=== PATIENT | male | born 1970 | race Caucasian/White ===

== ENCOUNTER 2023-07-29 21:20 | Emergency (ER) | payer BC, SELFPAY ==
[2023-07-29 21:23] VITALS: BP 159/88
[2023-07-29 21:43] VITALS: BP 139/101
[2023-07-29 21:49] VITALS: BMI 32.9
[2023-07-29 22:02] LABS: % Basophils 0.3 % (0-2); % Eosinophils 0.4 % (0-6); % Immature Granulocytes 0.7 % (0-0.5); % Lymphocytes 6.8 % (20.5-51.1); % Monocytes 6.1 % (1.7-9.3); % Neutrophils 85.7 % (42.2-75.2); Absolute Basophils 0.1 10^3/uL (0-0.2); Absolute Eosinophils 0.1 10^3/uL (0-0.7); Absolute Immature Granulocytes 0.1 10^3/uL (0-0.05); Absolute Lymphocytes 1.2 10^3/uL (1.2-3.4); Absolute Monocytes 1.1 10^3/uL (0.1-0.6); Absolute Neutrophils 15.1 10^3/uL (1.4-6.5); Hemoglobin 15.4 g/dL (13.0-18.0); Mean Corp Hgb Conc. 35.8 g/dL (33.0-37.0); Mean Corpuscular Hgb 30.3 pg (27.0-31.0); Mean Corpuscular Volume 84.6 fL (80.0-94.0); Nucleated Red Blood Cells % 0 % (-); Platelet Count 288 10^3/uL (130-400); Red Blood Cell Count 5.08 10^6/uL (4.70-6.10); Red Cell Dist. Width 13.4 % (11.5-14.5); White Blood Cell Count 17.7 10^3/uL (4.8-10.8)
[2023-07-29 22:04] LABS: Urine Albumin 1+ (Neg - Trace); Urine Bilirubin Negative (Negative); Urine Character Clear (Clear); Urine Color Yellow; Urine Glucose Negative (Negative); Urine Ketone 1+ (Negative); Urine Leukocyte Trace (Negative); Urine Nitrite Negative (Negative); Urine Occult Blood 4+ (Negative); Urine Specific Gravity 1.025 (<1.030); Urine Urobilinogen Negative (Neg - 1+)
[2023-07-29 22:14] LABS: ALT (SGPT) 37 U/L (0-50); AST (SGOT) 38 U/L (17-59); Albumin 4.7 g/dl (3.5-5.0); Alkaline Phosphatase 92 U/L (38-126); Blood Urea Nitrogen 19 mg/dl (9-20); Carbon Dioxide 23 mmol/L (22-30); Chloride 108 mmol/L (98-107); Estimated Creatinine Clearance 77 ml/min; Glucose 127 mg/dl (70-99); Potassium 3.9 mmol/L (3.5-5.1); Sodium 138 mmol/L (135-145); Total Bilirubin 0.9 mg/dl (0.2-1.3); Total Protein 7.9 g/dl (6.3-8.2); eGFR > 60.00
[2023-07-29 22:15] LABS: Urine Mucus Few; Urine Squamous Cell 0-2 /LPF (Few)
[2023-07-29 22:17] LABS: Urine Uric Acid Crystals Present
[2023-07-29 22:19] LABS: Urine Red Blood Cell 40-50 /HPF (0-2); Urine White Cell 0-2 /HPF (0-5)
[2023-07-29 22:20] LABS: Urine Bacteria Moderate (Negative)
--- NOTE | 2023-07-29 23:02 | ED.GENMED ---
History of Present Illness
General
Chief Complaint: Flank Pain
Source: patient
Exam Limitations: none
Time Seen by Provider: 07/29/23 22:15
Travel History
Have you had any contact with someone who has COVID-19?: No
Do you have any symptoms of coronavirus? Fever > 100 degrees, chills, cough, shortness of breath, sore throat, loss of taste or smell, muscle aches, or headache?: No
History of Present Illness
History of Present Illness:
This is a 53 year old male that comes in with c/o left flank pain. States that he started on Friday with a little lower abd pain on the left. States that his urine also was a little bloody and his output was decreased. States that yesterday he went
to work and today he worked till about 4pm. States that he went to [facility] and they all had a 5 hour wait so he came here. States that he was nauseated and had dry heaves. Denies any fever, chills, chest pain, SOB, vomiting,
diarrhea, headache, dizziness, urinary burning.
Past History
Past History
ED Past Medical History: HTN and Other (Renal calculus); Negative Asthma, Hypercholesterolemia or NIDDM
ED Past Surgical History: None
Social History
Tobacco: Smoker
Alcohol: None
Personal:
Living: with family
Employment: Employed
Review of Systems
Review of Systems
All Other Systems: ROS reviewed and negative except as documented in HPI and ROS
Constitutional: Reports no symptoms; Denies fever or chills
EENT: Reports no symptoms
Respiratory: Reports no symptoms; Denies cough or trouble breathing
Cardiac: Reports no symptoms; Denies chest pain
ABD/GI: Reports abdominal pain (Left lower abd) and nausea (Slight Dry heaves); Denies vomiting or diarrhea
: Reports other (Decreased output); Denies dysuria, frequency or urgency
Musculoskeletal: Reports no symptoms
Skin: Reports no symptoms
Neurological: Reports no symptoms; Denies dizzy or headache
Psychiatric: Reports no symptoms
Phy Exam
General Physical Exam
General Presentation: mild distress
General age: appears stated age
General Skin: warm and dry
General Habitus: normal
General Mental: alert
General Hydration: appears well hydrated
ENT Exam
ENT Exam: TM's normal, pharynx normal and neck supple
Eye Exam
Eye Exam: EOMI
Cardiovascular Exam
Cardiovascular Exam: regular rate/rhythm, no edema and normal peripheral pulses
Pulmonary Exam
Pulmonary Exam: lungs clear, no respiratory distress, no rales, chest non tender, no crackles, no rhonchi, no wheezing and no cough
Gastrointestinal Exam
Gastrointestinal Exam: normal bowel sounds, non tender, soft, no organomegaly, no pulsatile mass, non distended and cva tenderness (Left sided very slight)
Musculoskeletal Exam
Musculoskeletal Exam: full ROM and no edema
Skin Exam
Skin Exam: normal color, warm/dry, no rash and no petechia
Psychiatric Exam
Psychiatric Exam: normal mood/affect
Course
Orders/Labs/Results
Orders:
Orders
07/29/23 21:50
EKG [Electrocardiogram (*1)] Urgent
Reason for Study: Abdominal Pain
07/29/23 21:51
EKG- Treatment ONCE
07/29/23 21:54
Complete Blood Count/With Diff Urgent
Comprehensive Metabolic Panel Urgent
Urinalysis Reflex To Culture Urgent
Date Specimen was Collected: 07/29/23
Time Specimen was Collected: 21:51
Urine Microscopic Reflex Cult Urgent
Urine Culture Urgent
CHRISTINE Source: U
Specimen Description:
Date Specimen was Collected: 07/29/23
Time Specimen was Collected: 21:51
07/29/23 23:01
0.9% Sodium Chloride 1000 ml [Nss] 1,000 ml IV BOLUS
HYDROmorphone [Dilaudid] 1 mg IV NOW STA
Ketorolac [Toradol] 30 mg IV NOW STA
07/29/23 23:02
CT Abd/pel Without Iv Or Oral Urgent
Comment:
Reason For Exam: Left flank pain
07/29/23 23:04
Ondansetron Injectable [Zofran] 4 mg IV NOW STA
07/29/23 23:05
Ondansetron Injectable [Zofran] 4 mg .ROUTE .STK-MED ONE
Abnormal Lab Results
07/29/23
21:54
WBC 17.7 H 10^3/uL
(4.8-10.8)
Abs Immat Gran (auto) 0.1 H 10^3/uL
(0-0.05)
Absolute Neuts (auto) 15.1 H 10^3/uL
(1.4-6.5)
Absolute Monos (auto) 1.1 H 10^3/uL
(0.1-0.6)
Immature Gran % 0.7 H %
(0-0.5)
Neutrophils % 85.7 H %
(42.2-75.2)
Lymphocytes % 6.8 L %
(20.5-51.1)
Chloride 108 H mmol/L
(98-107)
Glucose 127 H mg/dl
(70-99)
Urine Ketones 1+ A
(Negative)
Ur Occult Blood Reflex 4+ A
(Negative)
Leukocyte Esterase Rfl Trace A
(Negative)
Urine RBC 40-50 A /HPF
(0-2)
Urine Bacteria (Reflex) Moderate A
(Negative)
Urine Albumin (Reflex) 1+ A
(Neg - Trace)
07/29/23 21:54
07/29/23 21:54
Leukocytosis, glucose nonfasting. Urine negative for infection.
Vital Signs
Initial and Last Documented VS:
Initial Vital Signs
Temp Pulse Resp BP Pulse Ox
98.5 F 91 19 159/88 95
07/29/23 21:23 07/29/23 21:23 07/29/23 21:23 07/29/23 21:23 07/29/23 21:23
Last Documented Vital Signs
Temp Pulse Resp BP Pulse Ox
98.5 F 91 19 123/81 95
07/29/23 21:23 07/29/23 21:23 07/29/23 21:23 07/29/23 23:14 07/29/23 23:14
MDM/Problems Addressed
Differential Diagnosis Includes:
Obstructing renal calculus, Diverticulitis,
MDM/Problems Addressed:
This is a 53 year old male that comes in with c/o left flank pain. States that he started with some lower abd pain on Friday and his urine was a little bloody. state that the pain has continued and increased.
Will get labs, Urine and CT scan.
Back into see patient. Explained that his CT shows that he has a 4mm stone that is at the UVJ. Encouraged patient to increase his water intake to 8-8oz glasses daily. Patient will also be given Flomax to help relax the smooth muscle, Percocet for
severe pain and Zofran for any nausea or vomiting. Patient to strain his urine and follow up with the Urologist. Patient to return with any fever or any other concerns.
Chronic conditions affecting care: Other (Renal calculus)
Acute Exacerbation and/or Progression of Chronic Illness: Other (Renal calculus)
*Radiology
Radiology exam reviewed: radiology read reviewed (CT night hawk- 4mm stone near the left UVJ resulting in mild left hydronephrosis. No bowel obstruction. Normal gallbladder and appendix. Incidentals: Splenic calcifications, likely sequela of prior
granulomatous disease. No hepatic or pancreatic mass. No abd aortic aneurysm. No acute osseous ) and other (CT cont- NO acute osseous abnormality. No acute abnormality within the visualized lungs. Bibasilar atelectasis. No acute abnormality within
the visualized soft tissues. )
*Pulse Oximetry
Patient hypoxic: no
*EKG
Interpreted by ED Provider?: NA
Rate: EKG- N/A
*Machine Programmer Interpretation
Rate: Machine Programmer- N/A
*Critical Care Note
Total Time (30-74mins, 75-104mins- exclusive of procedures): Not Applicable
ED Attending Note
-
Portions of this chart may have been created with voice recognition software.� Occasional wrong word or��sound alike� substitutions may have occurred due to the inherent limitations of voice recognition software.
Discharge Plan
Departure
Patient Disposition: Home (Routine Discharge)
Date of Disposition: 07/30/23
Time of Disposition: 00:27
Patient with high blood pressure during this ER visit?: No
Condition: Good
Covid-19: Not Applicable
Discharge Problem:
Renal calculus, left
Instructions: Renal Colic (DC), How to Strain Your Urine, Narcotic Pain Medication
Prescriptions:
New
tamsulosin [Flomax] 0.4 mg capsule
0.4 mg PO HS Qty: 10 0RF
ondansetron 4 mg tablet,disintegrating
4 mg PO Q8H PRN (Reason: nausea and vomiting) Qty: 7 0RF
oxycodone-acetaminophen [Percocet] 5-325 mg tablet
1 tab PO Q4HPRN PRN (Reason: pain) Qty: 7 0RF
Referrals:
Nathan Flores MD [Active] - Follow up in 5-7 days
Ash Adams DO [Family Provider] -
Activity Restrictions/Additional Instructions:
As discussed, your White blood cell count is elevated. Your urine is negative for infection and your CT shows that you have a 4mm stone that is almost to the bladder. Please increase your water intake to 8-8oz glasses daily. Please strain your
urine. You have had three prescriptions sent to your Pharmacy. The first is for Flomax that will help relax the smooth muscle so you can pass the stone. Please take this at bedtime. The second is for Zofran that will help with any nausea/vomiting.
The last is for a narcotic pain medication. This is for severe pain. This will make you tired. Please no driving or alcohol when taking. YOU MAY USE IBUPROFEN 600MG EVERY 6 HOURS WITH FOOD FOR LESSER PAIN AND ALTERNATE WITH TYLENOL 1000MG EVERY 6
HOURS IF YOU ARE NOT USING THE PERCOCET. IF YOU HAVE INCREASED OR CHANGING PAIN, FEVER, OR YOU HAVE ANY OTHER CONCERNS PLEASE RETURN TO THE EMERGENCY ROOM.
Interventions
Interventions:
*Risk Screen - Suicide Last Done: 07/29/23 21:23
*General Assessment Last Done: 07/29/23 21:23
*Neglect/Abuse Screening Last Done: 07/29/23 21:23
ED- Fall Risk Assessment Last Done: 07/29/23 21:58
*ED COVID-19 Vaccine History Last Done: 07/29/23 21:23
DU-Bsohfe-Qgjtulmabo Assessment Last Done: 07/29/23 21:58
ED-Male Genitourinary Assessment Last Done: 07/29/23 21:58
[2023-07-29] MEDS: ZOFRAN 4 MG IV (23:07)
[2023-07-29] MEDS: NSS 1000 IV (23:07)
[2023-07-29] MEDS: TORADOL 30 MG IV (23:09)
[2023-07-29] MEDS: DILAUDID 1 MG IV (23:11)
[2023-07-29 23:14] VITALS: BP 123/81
[2023-07-30] VITALS: BP 119/79
[2023-07-30] MEDS: FLOMAX 0.400000000000000022 MG PO (00:33)
== END 2023-07-30 00:51 | disposition home or self-care (01) ==
LOC: EMR 21:20
PROVIDERS: EMERGENCY PHYSICIAN Emergency Medicine; FAMILY PHYSICIAN Family Medicine
DX: N13.2 Hydronephrosis with renal and ureteral calculous obstruction (principal); F17.200 Nicotine dependence, unspecified, uncomplicated
CPT/HCPCS: 99284; 96374; 96375 ×2; 96361; 74176; 80053; 81003; 81015; 85025; 87086